=== PATIENT | male | born 1995 | race Caucasian/White ===

== ENCOUNTER 2020-06-04 14:42 | Emergency (ER) | payer MEDICAID ==
[~2020-06-04] VITALS: Ht 188 cm; Wt 72.8 kg
[2020-06-04 14:54] VITALS: BP 134/83
[2020-06-04] MEDS ORDERED: acetaminophen 325mg tablet PO ONE (15:10)
[2020-06-04] MEDS ORDERED: ibuprofen tablet 400 MG TABLET PO ONE (15:10)
[2020-06-04] MEDS ORDERED: LIDOcaine 1% W/epiNEPHrine 1:200,000 10ml vial IJ ONE (15:10)
== END 2020-06-04 16:39 | disposition home or self-care (01) ==
LOC: ER 14:43
DX: S62.336A Displaced fracture of neck of fifth metacarpal bone, right hand, initial encounter for closed fracture (principal); X58.XXXA Exposure to other specified factors, initial encounter; Y93.89 Activity, other specified; Y92.89 Other specified places as the place of occurrence of the external cause; Y99.8 Other external cause status
CPT/HCPCS: 26742; 73120; 73130; 99284

== ENCOUNTER → 2020-06-21 | Emergency (ER) | payer MEDICAID ==
[~2020-06-21] VITALS: Ht 190.5 cm; Wt 70.8 kg
[2020-06-21 14:27] VITALS: BP 118/81
== END | disposition home or self-care (01) ==
LOC: ER 14:22
DX: S62.306A Unspecified fracture of fifth metacarpal bone, right hand, initial encounter for closed fracture (principal); X58.XXXA Exposure to other specified factors, initial encounter; Y93.89 Activity, other specified; Y92.89 Other specified places as the place of occurrence of the external cause; Y99.8 Other external cause status
CPT/HCPCS: 73130; 99283